=== PATIENT | female | born 1950 | race Caucasian/White ===

== ENCOUNTER → 2020-06-29 12:36 | Outpatient (CLI) | payer MEDICARE, OTHER, SELFPAY | PROVIDERS: Family Provider Family Medicine; PCP Internal Medicine; Referring Provider Internal Medicine; Visit Provider Internal Medicine | DX: M81.0 Age-related osteoporosis without current pathological fracture (principal); Z78.0 Asymptomatic menopausal state | CPT/HCPCS: 77080 ==

== ENCOUNTER → 2020-09-11 10:01 | Outpatient (CLI) | payer MEDICARE, OTHER, SELFPAY ==
[2020-09-11 11:18] LABS: COVID19 -Nasal RAPID Negative (Negative)
== END ==
PROVIDERS: Family Provider Family Medicine; PCP Internal Medicine; Visit Provider Physician Assistant
DX: Z20.822 Contact with and (suspected) exposure to COVID-19 (principal)
CPT/HCPCS: 87635

== ENCOUNTER 2020-09-12 07:41 | Day surgery (SDC) | payer MEDICARE, OTHER, SELFPAY ==
--- NOTE | 2020-09-12 | PATH_ITS ---
[facility] Accession Number: [id number] . 01 Material submitted: . colon - COLON POLYPS . 02 Diagnosis: Colon, Polyps, Biopsies: Tubular adenoma, two fragments. V 09/14/2020 1337 Local . 02 Electronically signed: . Berta Sue MD, Pathologist NPI- [id number] . 01 Gross description: . COLON POLYPS: Received in formalin are 2 fragment(s) of vega, soft tissue measuring 0.3 x 0.3 x 0.3 cm to 0.3 x 0.2 x 0.2 cm submitted entirely in 1 cassette(s) /HASMUKH 09/13/2020 0428 Local . 02 Pathologist provided ICD-10: D12.6 . 02 CPT . 884889 Performed at: 01 [facility] [address] [id number] MD Yang Morillo MD Phone: [phone] Performed at: [facility] [address] [place], [place] [id number] MD Berta Sue MD Phone: [phone]
[2020-09-12 08:05] VITALS: BP 97/74; PULSE 94; RESP 16; TEMP 36.5; O2SAT 96; BMI 23.0
[2020-09-12] MEDS: LACTATED RINGERS 1,000 ML 42 ML IV (08:28)
--- NOTE | 2020-09-12 08:33 | P.HP_ITS ---
History of Present Illness History of Present Illness Date Patient Seen: 09/12/20 Time Patient Seen: 08:33 Chief complaint: COLONOSCOPY Narrative: Recent positive cologuard. Otherwise, no concerns at [facility] in 2009. Patient History Comment: mitral valve repair. not on anticoagulants Family & Social History Family history unavailable: No Social History: household members spouse Tobacco & Substance use: Smoking Status Never smoker alcohol intake frequency a few times a week Substance Use Type does not use Meds Home Medications and Allergies Home Medications Medication Instructions Recorded Confirmed Type atorvastatin 10 mg tablet 10 mg PO DAILY 09/12/20 09/12/20 History metoprolol tartrate 25 mg tablet 25 mg PO DAILY 09/12/20 09/12/20 History Allergies Allergy/AdvReac Type Severity Reaction Status Date / Time Penicillins [PENICILLINS] Allergy Unknown Verified 09/12/20 07:56 Review of Systems Review of Systems ROS: Yes All systems reviewed with the patient and are negative except as otherwise documented Exam Vital Signs (past 8 hours): - 09/12/20 08:05 Temperature 97.7 F Pulse Rate 94 H Respiratory Rate 16 Blood Pressure 97/74 Pulse Oximetry 96 Oxygen Delivery Method Room Air Const General: cooperative and comfortable Orientation: alert HENHI Head: normocephalic Ears: external ears normal Nose: external nose normal Face and sinus: normal facial exam Mouth: oral mucosae normal Eyes General: appearance normal, both eyes and all related structures Neck Neck: normal visual inspection Chest Chest: normal inspection of the chest Resp Effort & Inspection: normal respiratory effort Auscultation: clear to auscultation bilaterally Cardio Rate: regular rate Rhythm: regular rhythm Heart Sounds: no murmurs GI Inspection: normal to inspection Palpation: soft and No tender Auscultation: normal bowel sounds Skin General: no rashes or lesions noted and No jaundice Neuro General: patient alert and moves all extremities Cognition: normal cognition Speech: speech normal Extrem General: no pedal edema Psych Appearance: grossly normal Assessment & Plan Assessment & Plan narrative: Positive cologuard. Colonoscopy today.
--- NOTE | 2020-09-12 08:37 | PM.PREOP ---
Pre-operative Note COVID-19 COVID-19 status: Negative Result date/Date tested (Pos, Neg/Pending): 09/11/20 Interval Note History & Physical reviewed/Exam performed by Physician: Yes Changes to H&P: No ASA Class (for procedural sedation): II
--- NOTE | 2020-09-12 09:09 | PM.OP.ENDO ---
Operative Date/Time/Diagnoses Date of procedure: 09/12/20 Time of procedure: 09:00 Pre-op diagnosis: Positive Cologuard Post-op diagnosis: same Procedure & Clinicians Study performed: Colonoscopy with snare polypectomy and biopsy Same procedure as scheduled: Yes Indications: Positive cologuard Surgeon: Armond Wheeler Procedure Notes SCOAP/Timeout: Done Procedure in detail: After the risks and benefits were explained, written and verbal informed consent was obtained. The patient was brought into the procedure room and placed into the left lateral decubitus position. MAC via anesthesiologist was accomplished. Digital rectal examination was accomplished. The scope was introduced into the patient and advanced under direct visualization to the cecum as identified by the appendiceal orifice and ileocecal valve. The scope was slowly withdrawn to carefully examine the mucosa for any defects or lesions. Comprehensive imaging was accomplished throughout the rectum including the dentate line. The colon was decompressed, the scope was then removed from the patient who tolerated the procedure well. Scope withdrawal time: 12 minutes Sedation minutes: 21 Complications: none Impression: There was a small approximately 6 mm polyp at the hepatic flexure. This was removed by way of cold snare polypectomy. We applied some cautery to the polypectomy site for confirmation of hemostasis. There is an additional 3 mm polyp in the transverse colon removed with cold forceps. No other significant pathology appreciated throughout. Post-procedure Recommendations: Colonscopy in 5 years and Will call with biopsy results Disposition: PACU
[2020-09-12 09:56] VITALS: BP 88/57; PULSE 85; RESP 20; TEMP 36.7; O2SAT 98
[2020-09-12 10:01] VITALS: BP 92/61; PULSE 87; RESP 16; TEMP 36.7; O2SAT 97
[2020-09-12 10:06] VITALS: BP 106/60; BP 108/78; PULSE 65; PULSE 83; RESP 16; O2SAT 98; O2SAT 99
[2020-09-12 10:12] VITALS: BP 108/67; PULSE 67; RESP 16; O2SAT 98
[2020-09-12 11:09] VITALS: BP 106/67; PULSE 80; RESP 18; TEMP 36.9; O2SAT 99
== END 2020-09-12 10:58 | disposition home or self-care (01) ==
PROVIDERS: Family Provider Family Medicine; PCP Internal Medicine; Referring Provider Internal Medicine Gastroenterology; Visit Provider Internal Medicine Gastroenterology
PROC: 0DJD8ZZ Inspection of Lower Intestinal Tract, Via Natural or Artificial Opening Endoscopic (ICD-10-PCS; CPT 45378; principal; 2020-09-12 09:00)
DX: R19.5 Other fecal abnormalities (principal); D64.9 Anemia, unspecified; F32.9 Major depressive disorder, single episode, unspecified; I10 Essential (primary) hypertension; E78.5 Hyperlipidemia, unspecified; D12.4 Benign neoplasm of descending colon
CPT/HCPCS: 45385; 45380

== ENCOUNTER → 2022-07-15 14:16 | Outpatient (CLI) | payer MEDICARE, OTHER, SELFPAY ==
--- NOTE | 2022-07-15 | DI.RAD.S_ITS ---
Bone Density Report Name: ARI ROSE Age: 71 Sex: Female Ethnicity: White Date of : 1950 Indication: osteopenia; Referring Provider: DYLAN GRAVES Study: Bone densitometry was performed. Exam Date: July 15, 2022 Accession number: [id number] Bone Density: Region BMD T-score Z-score Classification AP Spine(L1-L4) 0.852 -1.8 0.4 Osteopenia Femoral Neck (Left) 0.522 -2.9 -1.0 Osteoporosis Total Hip (Left) 0.679 -2.2 -0.6 Osteopenia Femoral Neck (Right) 0.486 -3.3 -1.4 Osteoporosis Total Hip (Right) 0.670 -2.2 -0.6 Osteopenia Total Hip Mean 0.674 -2.2 -0.6 Osteopenia World Health Organization criteria for BMD impression classify patients as: Normal (T-score at or above -1.0), Osteopenia (T-score between -1.0 and -2.5), or Osteoporosis (T-score at or below -2.5). 10-year Fracture Risk: FRAX not reported because: Some T-score for Spine Total or Hip Total or Femoral Neck at or below -2.5 Previous Exams: -- Region Exam Age BMD T-score BMD Change BMD Change Date g/cm2 vs Baseline vs Previous -- AP Spine (L1-L4) 07/15/2022 71 0.852 -1.8 -0.021 (-2.4%)# -0.021 (-2.4%)# 06/29/2020 69 0.873 -1.6 Total Hip(Left) 07/15/2022 71 0.679 -2.2 0.006 (0.9%)# 0.006 (0.9%)# 06/29/2020 69 0.673 -2.2 Total Hip(Right) 07/15/2022 71 0.670 -2.2 -0.015 (-2.1%)# -0.015 (-2.1%)# 06/29/2020 69 0.684 -2.1 -- *Denotes significance at 95% confidence level, LSC for AP Spine = 0.022 g/cm2, LSC for Total Hip = 0.027 g/cm2 # Denotes dissimilar scan types or analysis methods Impression: The patient has osteoporosis, based on the Right Femoral Neck T-score. No significant bone loss was observed. Discussion: INCREASED RISK OF FRACTURE. BONE DENSITY IS UNDESIRABLY LOW AT ONE OR MORE SKELETAL SITES, CONSISTENT WITH POSTMENOPAUSAL OSTEOPOROSIS. This patient's lowest T-score meets the World Health Organization's (WHO) criteria for osteoporosis at one or more sites (T-score -2.5 or below). In untreated patients, the risk of osteoporotic fracture increases approximately two-fold for each 1.0 SD decrease in T-score. Low bone density is not the only risk factor for fracture; also consider factors such as patient's age, frailty or poor health, risk of falling, risk of injury, previous osteoporotic fracture, family history of osteoporosis, cigarette smoking, low body weight, etc. Not everyone with low bone mineral density has osteoporosis; osteomalacia and other metabolic bone disorders should also be considered. Patients who have osteoporosis should be evaluated for specific diseases and conditions (secondary causes) that may cause or contribute to bone loss. The [place] Association [employer] Clinical Endocrinologists (AACE) and National Osteoporosis Foundation (NOF) recommend pharmacologic intervention for all postmenopausal women whose T-score is in this range. The patient should follow a healthful lifestyle (good nutrition with adequate calcium and vitamin D, and appropriate weight-bearing exercise). Follow-Up: Consider a repeat BMD and Vertebral Fracture Assessment (VFA) exam in 2 years or sooner if medically necessary, to reassess this patient's status. Reported by: COLBY HANKS MD on 07/15/2022 2:47:00 PM.
== END ==
PROVIDERS: Family Provider Family Medicine; PCP Internal Medicine; Referring Provider Student in an Organized Health Care Education/Training Program; Visit Provider Student in an Organized Health Care Education/Training Program
DX: M81.0 Age-related osteoporosis without current pathological fracture (principal)
CPT/HCPCS: 77080

== ENCOUNTER → 2023-08-29 09:39 | Outpatient (CLI) | payer MEDICARE, OTHER, SELFPAY ==
[2023-08-29 15:42] LABS: COVID-19 CEPHEID 4-PLEX PCR Negative (Negative); Influenza A - CEPHEID Flu A NEGATIVE (NEGATIVE); Influenza B - CEPHEID Flu B NEGATIVE (NEGATIVE); Respiratory Syncytial Virus Negative (Negative)
[2023-08-29 15:45] LABS: Human Metapneumovirus Detected (Not Detect)
== END ==
PROVIDERS: Family Provider Family Medicine; PCP Internal Medicine; Visit Provider Nurse Practitioner Family
DX: R05.9 Cough, unspecified (principal)
CPT/HCPCS: 0241U; 87633

== ENCOUNTER → 2024-07-13 09:29 | Outpatient (CLI) | payer MEDICARE, OTHER, SELFPAY ==
[2024-07-13 10:23] LABS: Add Manual Diff / Slide Review NO; Basophils Absolute Auto 0 /uL (0-100); Basophils Percent Auto 0.5 % (0-2); Eosinophils Absolute Auto 100 /uL (0-450); Eosinophils Percent Auto 1.1 % (2-4); Hematocrit 39.4 % (36-46); Hemoglobin 13.4 g/dL (12.0-16.0); Lymphocytes Absolute Auto 2500 /uL (1100-4500); Lymphocytes Percent Auto 46.1 % (25-40); Mean Corpuscular Hemoglobin 32.2 PG (26-34); Mean Corpuscular Volume 94.9 fL (80-100); Monocytes Absolute Auto 500 /uL (0-900); Monocytes Percent Auto 8.3 % (3-14); Neutrophils Absolute Auto 2400 /uL (1500-7000); Platelet Count 162 X10^3/uL (150-400); Red Blood Cell Count 4.15 X10^6/uL (4.0-5.2); Red Cell Distribution Width 12.8 % (11.6-14.8); White Blood Cell Count 5.4 X10^3/uL (4.5-11.0)
[2024-07-13 10:41] LABS: Alanine Aminotransferase 25 IU/L (<35); Albumin 4.6 g/dL (3.5-5.0); Alkaline Phosphatase 60 U/L (38-126); Aspartate Aminotransferase 27 IU/L (14-36); Bilirubin Total 1.1 mg/dL (0.2-1.3); Blood Urea Nitrogen 16 mg/dL (7-17); Calcium 9.5 mg/dL (8.4-10.2); Carbon Dioxide 25 mmol/L (22-32); Chloride 106 mmol/L (98-107); Cholesterol 211 mg/dL (140-199); Estimated Glomerular Filt Rate > 60 mL/min (>60); Globulin 2.3 g/dL (1.7-4.1); Glucose 95 mg/dL (70-99); HDL Cholesterol 87 mg/dL (40-60); HEMOLYSIS < 15 (0-50); LDL Cholesterol Calculated 104 mg/dL (<100); Potassium 4.4 mmol/L (3.4-5.1); Sodium 138 mmol/L (137-145); Total Protein 6.9 g/dL (6.3-8.2); Triglycerides 102 mg/dL (35-150)
[2024-07-13 11:31] LABS: Hep C Virus Ab w/Reflex Quant NEGATIVE s/c (NEGATIVE)
== END ==
LOC: LAB 09:30
PROVIDERS: Family Provider Family Medicine; PCP Family Medicine; Referring Provider Family Medicine; Visit Provider Family Medicine
DX: Z98.890 Other specified postprocedural states (principal); Z13.220 Encounter for screening for lipoid disorders; Z00.00 Encounter for general adult medical examination without abnormal findings; Z11.59 Encounter for screening for other viral diseases
CPT/HCPCS: 36415; 80053; 80061; 85025; 86803

== ENCOUNTER → 2024-07-22 11:07 | Outpatient (CLI) | payer MEDICARE, OTHER, SELFPAY ==
--- NOTE | 2024-07-22 11:07 | DI.RAD.S_ITS ---
PROCEDURE: XR DEXA AXIAL SKELETON INDICATIONS: menopausal osteoporosis COMPARISON: [facility], CR, XR DEXA AXIAL SKELETON, 07/15/2022, 14:36. [facility], CR, XR DEXA AXIAL SKELETON, 06/29/2020, 12:56. FINDINGS: Lumbar Spine: Bone mineral density 0.834 g/cm2, T score -1.9, osteopenia with a reduction of 2.1 % of bone mineral density with reference to the most recent comparison study from 07/15/22. Left Femoral Neck: Bone mineral density is 0.491 g/cm2, T score -3.2, osteoporosis. Left Hip: Bone mineral density 0.687 g/cm2, T score -2.1, osteopenia with a 1.2% reduction in bone mineral density from the most recent comparison study dated 07/15/22. Fracture Risk Calculation (when applicable): 10-year fracture risk of a major osteoporotic fracture 22% and of a hip fracture 8.6 percent. (T score greater or equal to -1.0 to: NORMAL) (T score from -1.1 to -2.4: OSTEOPENIA) (T score less than or equal to -2.5: OSTEOPOROSIS) IMPRESSION: Osteopenia at the lumbosacral spine, osteoporosis at the left femoral neck, sequential similar reduction in bone mineral radiodensity over the prior 3 studies. Significant increased risk of major osteoporotic fracture or hip fracture. Follow-up guidelines as follows: Osteoporosis: Consider a repeat DEXA and Vertebral Fracture Assessment (VFA) exam in 2 years or sooner if medically necessary, to reassess this patient's status. Osteopenia: Consider a repeat DEXA in 2-3 years to reassess this patient's status, or if there is a new clinical indication. Normal: Consider a repeat DEXA in 5 years or sooner, or if there is a new clinical indication. All treatment decisions require clinical judgment and consideration of individual patient factors, including patient preferences, comorbidities, previous drug use, risk factors not captured in the FRAX model (e.g., frailty, falls, vitamin D deficiency, increased bone turnover, interval significant decline in bone density ) and possible under- or over-estimation of fracture risk by FRAX. In addition, the NOF Guide recommends that FDA-approved medical therapies be considered in postmenopausal women and men age >= 50 years with a: * Hip or vertebral (clinical or morphometric) fracture * T-score of <=-2.5 at the spine or hip * Ten-year fracture probability by FRAX of >= 3% for hip fracture or >=20% for major osteoporotic fracture. Dictated by: Isaac Parrish M.D. on 07/25/2024 at 16:19 Approved by: Isaac Parrish M.D. on 07/25/2024 at 17:00
== END ==
LOC: RAD 11:07
PROVIDERS: Family Provider Family Medicine; PCP Family Medicine; Referring Provider Family Medicine; Visit Provider Family Medicine
DX: M81.0 Age-related osteoporosis without current pathological fracture (principal); M85.89 Other specified disorders of bone density and structure, multiple sites
CPT/HCPCS: 77080

== ENCOUNTER → 2025-02-20 15:09 | Outpatient (CLI) | payer MEDICARE, OTHER, SELFPAY ==
[2025-02-20 16:21] LABS: HEMOLYSIS < 15 (0-50); Iron 131 ug/dL (37-170)
[2025-02-20 16:32] LABS: Percent Iron Saturation 52 % (15-50); Total Iron Binding Capacity 250 ug/dL (265-497); Transferrin 234 mg/dL (206-381)
[2025-02-20 16:40] LABS: Vitamin D 25 Hydroxy (D3) 36.5 ng/mL (30.0-100.0)
[2025-02-20 16:53] LABS: TSH w/ Reflex to FT4 0.80 uIU/mL (0.47-4.68)
[2025-02-20 16:58] LABS: Ferritin 197 ng/mL (11-264)
== END ==
PROVIDERS: PCP Family Medicine; Referring Provider Family Medicine; Visit Provider Family Medicine
DX: R40.0 Somnolence (principal)
CPT/HCPCS: 82306; 82728; 83540; 83550; 84443